=== PATIENT | female | born 1940 | race Caucasian/White ===

== ENCOUNTER 2019-05-05 18:17 | Emergency (ER) | payer OTHER ==
[2019-05-05 18:22] VITALS: BP 158/78; PULSE 76; TEMP 98.5; BMI 24.1
--- NOTE | 2019-05-05 18:44 | PDOC ---
History of Present Illness - General Chief Complaint: Pain, Acute Stated Complaint: SHOULDER PAIN Time Seen by Provider: 05/05/19 18:25 - History of Present Illness Initial Comments: 05/05/19 18:40 79-year-old female with a past medical history significant for hypertension presents for evaluation of bilateral shoulder pain and left arm radicular symptoms times one day without systemic symptoms chest pain or shortness of breath Past History - Past Medical History Allergies/Adverse Reactions: Allergies Allergy/AdvReac Type Severity Reaction Status Date / Time No Known Allergies Allergy Verified 05/05/19 18:22 Home Medications: Ambulatory Orders Methylprednisolone [Medrol Dose Reece] 4 mg PO ASDIR #21 tablet 05/05/19 Metoprolol Succinate [Toprol Xl] 25 mg PO DAILY 05/05/19 COPD: No HTN: Yes Thyroid Disease: Yes - Surgical History Abdominal Surgery: (TUBAL LIGATION) Appendectomy: Yes - Immunization History Immunization Up to Date: Yes - Suicide/Smoking/Psychosocial Hx Smoking History: Never smoked Hx Alcohol Use: No Drug/Substance Use Hx: No Substance Use Type: None Review of Systems - Review of Systems Musculoskeletal: Yes: Joint Pain, Neck Pain *Physical Exam - Vital Signs Last Vital Signs Temp Pulse Resp BP Pulse Ox 98.5 F 76 16 158/78 97 05/05/19 18:19 05/05/19 18:19 05/05/19 18:19 05/05/19 18:19 05/05/19 18:19 - Physical Exam Comments: 05/05/19 18:40 Return normal. Range of motion is slightly limited. There is no midline tenderness. There is tenderness over the trapezium musculature bilaterally and paracervical musculature. 5 out of 5 strength bilateral upper extremities without gross sensory motor deficits positive Spurling maneuver on the left negative on the right neurovascular intact Medical Decision Making - Medical Decision Making 05/05/19 18:41 Radicular symptoms are reproducible with Spurling maneuver. I've advised the patient against anti-inflammatories I will have her start a Medrol Dosepak and have her follow-up with neurosurgery in 1-2 days for further evaluation and treatment options. *DC/Admit/Observation/Transfer Diagnosis at time of Disposition: Cervical radiculopathy - Discharge Dispostion Disposition: HOME Condition at time of disposition: Stable Decision to Admit order: No - Referrals Referrals: Daljit Byrnes MD [Staff Physician] - - Patient Instructions Printed Discharge Instructions: DI for Cervical Radiculopathy Additional Instructions: Return to the emergency room for worsening symptoms. Follow-up with neurosurgery in 1-2 days without fail for further evaluation and treatment options. Do not take any anti-inflammatory such as Advil Motrin Aleve or ibuprofen. He may take Tylenol as directed for pain. Start the Medrol Dosepak tomorrow and take it as directed. Instructions were on the package. - Post Discharge Activity
== END 2019-05-05 19:00 | disposition home or self-care (01) ==
LOC: JERFT 18:17
DX: M54.12 Radiculopathy, cervical region (principal); I10 Essential (primary) hypertension
CPT/HCPCS: 99281-25

== ENCOUNTER 2019-12-19 17:14 | Emergency (ER) | payer OTHER ==
[2019-12-19 17:24] VITALS: BP 171/98; PULSE 82; TEMP 97.8; BMI 23.6
--- NOTE | 2019-12-19 19:20 | PDOC ---
Documentation entered by Brennen Leija SCRIBE, acting as scribe for Becki Hernandez MD. Becki Hernandez MD: This documentation has been prepared by the fredrickeLiss Angel, SCRIBE, under my direction and personally reviewed by me in its entirety. I confirm that the documentation accurately reflects all work, treatment, procedures, and medical decision making performed by me. Attending Attestation - Resident Resident Name: Darius Mendoza
--- NOTE | 2019-12-19 19:25 | PDOC ---
History of Present Illness - General Chief Complaint: Nausea Stated Complaint: DIZZINESS/NAUSEA Time Seen by Provider: 12/19/19 19:16 Past History - Past Medical History Allergies/Adverse Reactions: Allergies Allergy/AdvReac Type Severity Reaction Status Date / Time No Known Allergies Allergy Verified 12/19/19 17:20 Home Medications: Ambulatory Orders Metoprolol Succinate [Toprol Xl] 25 mg PO DAILY 05/05/19 COPD: No HTN: Yes Thyroid Disease: Yes - Surgical History Abdominal Surgery: (TUBAL LIGATION) Appendectomy: Yes - Immunization History Immunization Up to Date: Yes - Psycho Social/Smoking Cessation Hx Smoking History: Never smoked Hx Alcohol Use: No Drug/Substance Use Hx: No Substance Use Type: None *Physical Exam - Vital Signs Last Vital Signs Temp Pulse Resp BP Pulse Ox 97.8 F 82 18 171/98 H 98 12/19/19 17:22 12/19/19 17:22 12/19/19 17:22 12/19/19 17:22 12/19/19 17:22 Medical Decision Making - Medical Decision Making 12/19/19 19:24 EKG shows NSR, 74 bpm, no ST elevation/depression, QTc 432. Multiple attempts by staff members made to locate the patient throughout and outside of the emergency department. Unable to locate patient. Left before medical evaluation. Discharge - Discharge Information Disposition: LEFT BEFORE [facility]AS[facility] - Follow up/Referral Referrals: Isaias Abdullahi MD [Primary Care Provider] - - Patient Discharge Instructions - Post Discharge Activity
--- NOTE | 2019-12-19 20:57 | PDOC ---
History of Present Illness - General Chief Complaint: Nausea Stated Complaint: DIZZINESS/NAUSEA Time Seen by Provider: 12/19/19 19:16 History Source: Patient Exam Limitations: No Limitations, Other (daughter translated ) - History of Present Illness Is this a multiple visit Asthma Patient?: No Timing/Duration: intermittent (Presents with chronic intermittent problems such as insomnia, poor appetite and chronic intermittent low back pain. Today she was concerned that her blood pressure was elevated.) Aspirin Received prior to arrival: Yes: no aspirin today Beta Chucho Taken at Home(Core Measure): Yes (Recently prescribed metoprolol) Past History - Past Medical History Allergies/Adverse Reactions: Allergies Allergy/AdvReac Type Severity Reaction Status Date / Time No Known Allergies Allergy Verified 12/19/19 17:20 Home Medications: Ambulatory Orders Metoprolol Succinate [Toprol Xl] 25 mg PO DAILY 05/05/19 COPD: No HTN: Yes Thyroid Disease: Yes - Surgical History Abdominal Surgery: (TUBAL LIGATION) Appendectomy: Yes - Immunization History Immunization Up to Date: Yes - Psycho Social/Smoking Cessation Hx Smoking History: Never smoked Hx Alcohol Use: No Drug/Substance Use Hx: No Substance Use Type: None *Physical Exam - Vital Signs Last Vital Signs Temp Pulse Resp BP Pulse Ox 97.8 F 82 18 171/98 H 98 12/19/19 17:22 12/19/19 17:22 12/19/19 17:22 12/19/19 17:22 12/19/19 17:22 - Physical Exam General Appearance: Yes: Nourished, Appropriately Dressed HEENT: positive: Normal Voice Neck: positive: Supple Respiratory/Chest: positive: Lungs Clear Cardiovascular: positive: Regular Rhythm, Regular Rate Gastrointestinal/Abdominal: positive: Normal Bowel Sounds, Soft Musculoskeletal: positive: Normal Inspection Extremity: positive: Normal Inspection, Normal Range of Motion Integumentary: positive: Normal Color, Warm Neurologic: positive: Alert, Motor Strength 5/5 Discharge - Discharge Information Problems reviewed: Yes Clinical Impression/Diagnosis: Nausea Condition: Stable Disposition: HOME - Follow up/Referral Referrals: Isaias Abdullahi MD [Primary Care Provider] - - Patient Discharge Instructions Patient Printed Discharge Instructions: DI for Anorexia Nervosa, DI for Insomnia, DI for Low Back Pain Additional Instructions: please followup with Dr Abdullahi - Post Discharge Activity
--- NOTE | 2019-12-20 17:08 | EKG ---
Test Reason : Blood Pressure : / mmHG Vent. Rate : 074 BPM Atrial Rate : 074 BPM P-R Int : 158 ms QRS Dur : 080 ms QT Int : 390 ms P-R-T Axes : 071 002 047 degrees QTc Int : 432 ms NORMAL SINUS RHYTHM NORMAL ECG WHEN COMPARED WITH ECG OF 06-AUG-2014 22:23, NO SIGNIFICANT CHANGE WAS FOUND BASELINE ARTIFACT Confirmed by DANIELLA GARNER MD ([id number]) on 12/20/2019 5:08:29 PM Referred By: Confirmed By:DANIELLA GARNER MD
== END 2019-12-19 21:16 | disposition home or self-care (01) ==
LOC: JER 17:14
DX: R11.0 Nausea (principal); I10 Essential (primary) hypertension; E07.9 Disorder of thyroid, unspecified; Z98.51 Tubal ligation status
CPT/HCPCS: 93005; 93010; 99283-25

== ENCOUNTER 2020-01-07 08:06 | Emergency (ER) | payer OTHER ==
[2020-01-07 08:19] VITALS: PULSE 88; BMI 22.4
[2020-01-07 08:50] VITALS: TEMP 97.9
[2020-01-07 08:51] VITALS: BP 158/83
[2020-01-07 09:49] LABS: BASO % 0.4 % (0-2.0); EOS % 0.1 % (0-4.5); HEMATOCRIT 40.8 % (32.4-45.2); HEMOGLOBIN 13.7 GM/dL (10.7-15.3); LYMPH % 19.1 % (8-40); MCHC 33.6 g/dl (32.0-36.0); MEAN CELL VOLUME 95.1 fl (80-96); MEAN PLT VOLUME 9.2 fl (7.5-11.1); NEUT % 72.4 % (42.8-82.8); PLATELET COUNT 294 K/MM3 (134-434); RBC 4.29 M/mm3 (3.60-5.2); WHITE BLOOD COUNT 5.3 K/mm3 (4.0-10.0)
[2020-01-07 10:26] LABS: PH,URINE 8.5 (5.0-8.0); URINE APPEARANCE CLEAR; URINE BILIRUBIN NEGATIVE (NEGATIVE); URINE COLOR YELLOW; URINE GLUCOSE (UA) NEGATIVE (NEGATIVE); URINE KETONE NEGATIVE (NEGATIVE); URINE LEUK ESTERASE NEGATIVE (NEGATIVE); URINE NITRITE NEGATIVE (NEGATIVE); URINE PROTEIN NEGATIVE (NEGATIVE); URINE UROBILINOGEN 0.2 mg/dL (0.2-1.0)
[2020-01-07 10:35] LABS: ALBUMIN 3.6 g/dl (3.4-5.0); ALK PHOS 72 U/L (45-117); ANION GAP 6 MMOL/L (8-16); BILIRUBIN,TOTAL 0.7 mg/dL (0.2-1); BLOOD UREA NITROGEN 12.8 mg/dL (7-18); CALCIUM 9.3 mg/dL (8.5-10.1); CHLORIDE 107 mmol/L (98-107); CO2 29 mmol/L (21-32); CREATININE 0.6 mg/dL (0.55-1.3); GLUCOSE,RANDOM 90 mg/dL (74-106); POTASSIUM 4.2 mmol/L (3.5-5.1); SGOT/AST 18 U/L (15-37); SGPT/ALT 17 U/L (13-61); SODIUM 141 mmol/L (136-145); TOT PROT 6.8 g/dl (6.4-8.2)
--- NOTE | 2020-01-07 11:09 | PDOC ---
Documentation entered by Kaykay Corona SCRIBE, acting as scribe for Barrington Nice MD. Barrington Nice MD: This documentation has been prepared by the Chloe carranza Adrianna, SCRIBE, under my direction and personally reviewed by me in its entirety. I confirm that the documentation accurately reflects all work, treatment, procedures, and medical decision making performed by me. History of Present Illness - General Chief Complaint: Weakness Stated Complaint: HEAD/BACK PAIN/CHILLS Time Seen by Provider: 01/07/20 08:32 - History of Present Illness Initial Comments: The patient is a 79 year old female, with a significant PMH of HTN and hypothyroidism, who presents to the ED for evaluation of weakness intermittently for 4 weeks. Patient reports feeling weak and tired on and off over the past month. She endorses nausea (without vomit) and chills. Patient was seen in the ED for the same complaint 2 weeks ago, and notes nothing has changed since. She saw her PCP two days ago for these complaints, and he advised that it was likely related to her thyroid (labs result tomorrow). She came to the ED today, as she thought her BP was elevated. Denies any chest pain , abdominal pain, dysuria, or headache. Allergies: NKA, NKDA Surgical History: Tubal ligation, appendectomy Social History: No toxic habits PCP: Dr. Abdullahi Past History - Past Medical History Allergies/Adverse Reactions: Allergies Allergy/AdvReac Type Severity Reaction Status Date / Time No Known Allergies Allergy Verified 01/07/20 08:19 Home Medications: Ambulatory Orders Metoprolol Succinate [Toprol Xl] 25 mg PO DAILY 05/05/19 COPD: No HTN: Yes Thyroid Disease: Yes - Surgical History Abdominal Surgery: (TUBAL LIGATION) Appendectomy: Yes - Immunization History Immunization Up to Date: Yes - Psycho Social/Smoking Cessation Hx Smoking History: Never smoked Have you smoked in the past 12 months: No Information on smoking cessation initiated: No Hx Alcohol Use: No Drug/Substance Use Hx: No Substance Use Type: None Review of Systems - Review of Systems Comments:: CONSTITUTIONAL: +weakness. +tired. +chills. +elevated BP. No fever EYES: No visual changes ENT: No ear pain, no sore throat CARDIOVASCULAR: No chest pain, no palpitations RESPIRATORY: No cough, no SOB GI: +nausea. No abdominal pain, no vomiting, no constipation, no diarrhea GENITOURINARY: No dysuria, no frequency, no hematuria MUSKULOSKELETAL: No back pain, no joint pain, no myalgias SKIN: No rash NEURO: No headache *Physical Exam - Vital Signs Last Vital Signs Temp Pulse Resp BP Pulse Ox 98.2 F 88 18 175/94 H 100 01/07/20 08:16 01/07/20 08:16 01/07/20 08:16 01/07/20 08:16 01/07/20 08:16 - Physical Exam CONSTITUTIONAL: Well-appearing; well-nourished; in no apparent distress HEAD: Normocephalic; atraumatic EYES: PERRL; EOM intact ENMT: External appears normal; normal oropharynx NECK: Supple; non-tender; no cervical lymphadenopathy CARD: Normal S1, S2; no murmurs, rubs, or gallops RESP: Normal chest excursion with respiration; breath sounds clear and equal bilaterally; no wheezes, rhonchi, or rales ABD: Soft, non-distended; non-tender; no palpable organomegaly, no palpable hernias EXT: Normal ROM in all four extremities; non-tender to palpation; distal pulses intact SKIN: Warm, dry, no rash NEURO: Cranial nerves II through XII are grossly intact; motor is five 5 x 4; no pronation drift; gait is stable Heart Score/ECG Review - ECG Impressions Comment:: EKG performed at 8:55 on 01/07/2020 demonstrates rate of 73bpm, normal sinus rhythm, axis equal to normal. No T wave inversions, no ST elevations. ED Treatment Course - LABORATORY CBC & Chemistry Diagram: 01/07/20 09:08 01/07/20 09:08 - ADDITIONAL ORDERS Additional order review: Laboratory Results 01/07/20 01/07/20 09:29 09:08 Sodium 141 Potassium 4.2 Chloride 107 Carbon Dioxide 29 Anion Gap 6 L BUN 12.8 Creatinine 0.6 Est GFR (CKD-EPI)AfAm 100.48 Est GFR (CKD-EPI)NonAf 86.69 Random Glucose 90 Calcium 9.3 Total Bilirubin 0.7 AST 18 ALT 17 Alkaline Phosphatase 72 Creatine Kinase 88 Troponin I < 0.02 Total Protein 6.8 Albumin 3.6 TSH 0.21 L Urine Color Yellow Urine Appearance Clear Urine pH 8.5 H D Ur Specific Fitzpatrick 1.010 Urine Protein Negative Urine Glucose (UA) Negative Urine Ketones Negative Urine Blood Negative Urine Nitrite Negative Urine Bilirubin Negative Urine Urobilinogen 0.2 Ur Leukocyte Esterase Negative 01/07/20 09:08 RBC 4.29 MCV 95.1 MCHC 33.6 RDW 14.0 D MPV 9.2 Neutrophils % 72.4 D Lymphocytes % 19.1 D Monocytes % 8.0 D Eosinophils % 0.1 Basophils % 0.4 - RADIOLOGY Radiology Studies Ordered: Category Date Time Status CHEST PA & LAT [RAD] Stat Radiology 01/07/20 08:47 Taken Radiograph Interpretation: EXAM#: TYPE/EXAM: [id number] RAD/CHEST PA & LAT Chest: Weakness Impression: No acute chest pathology. Reported By: Oleksandr Jimenez MD 01/07/20 11:08 Medical Decision Making - Medical Decision Making 01/07/20 11:06 Patient is a well-appearing 79-year-old female with history of hypertension hypothyroidism who presents to the ER with several weeks of generalized weakness and malaise. Patient denies headache/chest pain/abdominal pain/fever/ cough/any other infectious symptomatology. Patient was seen and evaluated in this ER 2 weeks previously for similar symptoms and has outpatient follow-up in 24 hours. As per patient and her daughter, no change from baseline has occurred prior to arrival. In the ER, patient is awake and alert, asymptomatic , with mildly elevated blood pressure and intermittent readings without evidence of endorgan damage. EKG shows no evidence of acute ischemia. Chest x- ray is within normal limit without evidence of cardiomegaly/infiltrate or effusion. CBC is within normal limit. CMP reveals low TSH with no evidence of electrolyte abnormalities. I do not suspect any acute process at this time. I provided the results of CBC/CMP and urinalysis to the patient. Will encourage outpatient follow-up. Discharge - Discharge Information Problems reviewed: Yes Clinical Impression/Diagnosis: Weakness - Follow up/Referral Referrals: Isaias Abdullahi MD [Primary Care Provider] - - Patient Discharge Instructions Patient Printed Discharge Instructions: DI for Muscle Weakness Print Language: TURKMEN - Post Discharge Activity
--- NOTE | 2020-01-07 12:30 | EKG ---
Test Reason : Blood Pressure : / mmHG Vent. Rate : 073 BPM Atrial Rate : 073 BPM P-R Int : 152 ms QRS Dur : 076 ms QT Int : 400 ms P-R-T Axes : 063 -08 023 degrees QTc Int : 440 ms NORMAL SINUS RHYTHM NONSPECIFIC T WAVE ABNORMALITY WHEN COMPARED WITH ECG OF 19-DEC-2019 17:28, NO SIGNIFICANT CHANGE WAS FOUND Confirmed by MD Herlinda, Carl ([id number]) on 01/07/2020 12:30:31 PM Referred By: Confirmed By:Carl Pate MD
== END 2020-01-07 11:36 | disposition home or self-care (01) ==
LOC: JER 08:06 → SUPCPDRO 08:06 → JER 11:36
DX: R53.1 Weakness (principal); I10 Essential (primary) hypertension; E03.9 Hypothyroidism, unspecified; Z98.51 Tubal ligation status
CPT/HCPCS: 36415; 71046-TC-FY; 80053; 81003; 82550; 84443; 84484; 85025; 93005; 93010; 99285-25